=== PATIENT | female | born 1970 | race Caucasian/White ===

== ENCOUNTER 2020-09-25 23:42 | Emergency (ER) | payer OTHER ==
[2020-09-26] MEDS ORDERED: BUFFERED LIDOCAINE 10 ML SYRINGE IU ONE ×2 (00:19→00:52)
[2020-09-26] MEDS ORDERED: BUFFERED LIDOCAINE 10 ML SYRINGE ONE (00:56)
[2020-09-26] MEDS ORDERED: BACITRACIN ZINC OINT 1 PACKET TOP STA (01:31)
--- NOTE | 2020-09-26 01:53 | ED Physician Documentation ---
PD HPI LOWER EXT INJURY - Stated complaint Stated Complaint: L LEG LAC - Chief complaint Chief Complaint: Laceration - History obtained from History obtained from: Patient - Additional information Additional information: Patient comes emergency department chief complaint of ground-level fall on the stairs. Patient states she was going up the stairs when she tripped and hit her left pendleton against a stair. Patient states she also twisted her back, right knee, and left thigh. She did not hit her head or lose consciousness. Patient states she also hit her right elbow and that it seems bruised, but that she has been able to move it. Patient was wearing pants at the time of the fall, but when she removed her pants, she noticed a large laceration on her left anterior tibial area. Patient has been ambulatory since the incident happened about an hour ago. No other complaints at this time. Patient is up-to-date on tetanus. Review of Systems Ten Systems: 10 systems reviewed and negative Constitutional: reports: Reviewed and negative Eyes: reports: Reviewed and negative Ears: reports: Reviewed and negative Nose: reports: Reviewed and negative Throat: reports: Reviewed and negative Cardiac: reports: Reviewed and negative Respiratory: reports: Reviewed and negative GI: reports: Reviewed and negative : reports: Reviewed and negative Skin: reports: Laceration (s) Musculoskeletal: reports: Reviewed and negative Neurologic: reports: Reviewed and negative Psychiatric: reports: Reviewed and negative Endocrine: reports: Reviewed and negative Immunocompromised: reports: Reviewed and negative PD PAST MEDICAL HISTORY - Present Medications Home Medications: Ambulatory Orders Medication Instructions Recorded Confirmed Levothyroxine [Synthroid] 09/26/20 Naproxen Sodium [Aleve] 220 mg PO PRN 09/26/20 Progesterone,Micronized 09/26/20 [Progesterone Micronized] - Allergies Allergies/Adverse Reactions: Allergies Allergy/AdvReac Type Severity Reaction Status Date / Time No Known Drug Allergies Allergy Verified 09/26/20 00:51 PD ED PE NORMAL - Vitals Vital signs reviewed: Yes - General General: Alert and oriented X 3, No acute distress, Well developed/nourished - HEENT HEENT: Atraumatic, PERRL, EOMI, Moist mucous membranes - Neck Neck: Supple, no meningeal sign - Cardiac Cardiac: Strong equal pulses - Respiratory Respiratory: No respiratory distress - Back Back: Other (Tender to palpation mildly in of her left inferior posterior rib cage. No step-off or crepitus.) - Derm Derm: Warm and dry, No rash, Other (Contusion with abrasion over right posterior elbow. 4 cm laceration/tissue tear over mid left anterior tibial area. Wound does not extend to bone.) - Extremities Extremities: No deformity, Other (Full range of motion right elbow.) - Neuro Neuro: Alert and oriented X 3, No motor deficit, No sensory deficit - Psych Psych: Normal mood, Normal affect Results - Vitals Vitals: Vital Signs - 24 hr 09/25/20 09/26/20 23:57 02:02 Temperature 36.9 C 36.9 C Heart Rate 91 86 Respiratory 16 18 Rate Blood Pressure 136/86 H 123/79 O2 Saturation 99 95 Oxygen O2 Source Room air Procedures - Laceration (location) L anterior tibial area Length in cm: 4 Wound type: Linear, Into subcut fat, Clean Neurovascular status: Sensory intact, Motor intact, Vascular intact Anesthesia: Lidocaine 1%, With bicarb, Volume - enter ml (10) Wound preparation: Hibiclens, Irrigated copiously NS, Wound explored, To the base. No: FB identified Skin layer closure: Nylon, Interrupted, Size #-0 - enter number (4.0), Sutures - enter # (9) PD MEDICAL DECISION MAKING - ED course Complexity details: considered differential, d/w patient ED course: Patient's wound was repaired as above. I did not find evidence of any other serious injuries. We have discussed wound care at home, as well as the timeline for suture removal. We have discussed the usual indications for return. Departure - Departure Disposition: 01 Home, Self Care Condition: Stable Instructions: ED Laceration All Comments: Please keep the wound clean and dry. You may let water and soap run over the wound but do not rub, scrub, or immerse the wound until sutures are removed. This is to prevent infection. The suture should be removed in 7 to 10 days by a medical professional. If you notice redness and swelling spreading progressively away from the wound, or if the wound becomes "mushy" and drains pus, you should have it rechecked immediately. Discharge Date/Time: 09/26/20 02:05
[2020-09-26 02:03] VITALS: BP 123/79
== END 2020-09-26 02:05 | disposition home or self-care (01) ==
LOC: ED 23:42
DX: S81.812A Laceration without foreign body, left lower leg, initial encounter (principal); S50.01XA Contusion of right elbow, initial encounter; W10.9XXA Fall (on) (from) unspecified stairs and steps, initial encounter
CPT/HCPCS: 12002; 99281; 99282